=== PATIENT | female | born 1970 | race Caucasian/White ===

== ENCOUNTER 2023-04-08 10:54 | Outpatient (RCR) | payer OTHER ==
[~2023-04-08 10:54] MED LIST: AMBIEN 10MG10 MG PO; AMBIEN 5MG TABLE5 MG PO; CARAFATE 1GM1 G PO; CATAPRES 0.1MG0.1 MG PO; CEPHALEXIN500 M1 PO; DESYREL 100MG100 MG PO; DILAUDID 2MG TAB2 MG PO; ESTRACE 1MG1 MG/TAB PO; EXCEDRIN1 TAB PO; FLEXERIL 1010 MG/TAB PO; GUAIFEN AC 10120 ML PO; IMITREX ST6 MG/0.5 M SC; IMITREX100 MG PO; IMITREX50 MG PO; INDERAL 20MG20 MG PO; LEXAPRO 10MG10 MG PO; LORTAB 10/500 51 TAB PO; LORTAB 5/500 501 TAB PO; MAGIC MOUTH PO; NAPROSYN500 MG PO; NO HOME MEDICATIONS; NORCO 325 MG-51 TAB PO; PAMELOR 25MG25 MG PO; PERCOCET 325 MG1 TA2; PERCOCET 325 MG1 TA2 PO; PHENERGAN 25 TA25 MG PO; PREDNISONE10 MG PO; PRILOSEC10 MG PO; SKELAXIN 800MG800 MG PO; TOPROL XL 50MG50 MG PO; ULTRAM 50MG TAB50 MG PO; VENTOLIN0.09 MG IH; WELLBUTRIN PO; WELLBUTRIN XL300 M1 PO; ZANAFLEX 4MG TAB4 MG PO; ZOFRAN 4MG T4 MG/TAB PO; ZOFRAN ODT4 MG PO
== END 2023-04-09 ==
LOC: WSOH
DX: M25.561 Pain in right knee (principal); W19.XXXA Unspecified fall, initial encounter; Y99.0 Civilian activity done for income or pay; G43.909 Migraine, unspecified, not intractable, without status migrainosus; R55 Syncope and collapse
CPT/HCPCS: 24774; L1810

== ENCOUNTER 2023-04-17 13:37 | Outpatient (RCR) | payer OTHER | END 2023-05-09 | LOC: WSOH | DX: M94.261 Chondromalacia, right knee (principal); S83.31XA Tear of articular cartilage of right knee, current, initial encounter; W19.XXXD Unspecified fall, subsequent encounter; Y99.0 Civilian activity done for income or pay; G43.909 Migraine, unspecified, not intractable, without status migrainosus; R55 Syncope and collapse ==